=== PATIENT | male | born 1990 | race Caucasian/White ===

== ENCOUNTER 2020-07-24 19:46 | Inpatient (IN) | payer OTHER, SELFPAY ==
[2020-07-24 19:47] VITALS: BP 154/100; PULSE 91; RESP 18; TEMP 35.7; O2SAT 99; BMI 32.6
--- NOTE | 2020-07-24 20:25 | RAD_ITS ---
STUDY: X-RAY - RIGHT HAND REASON FOR EXAM: Male, 29 years old. CAT BITE TO RIGHT INDEX FINGER. SWELLING AND REDNESS TO OTHER FINGERS AND PALM OF HAND. TECHNIQUE: 3 view(s) of the hand. COMPARISON: None. FINDINGS: Normal radiocarpal articulation. Normal distal radioulnar joint. Normal visualized carpal bones. Normal carpal articulations Normal carpometacarpal articulation of the thumb. Normal second through fifth carpometacarpal joints. Normal metacarpi. No visualized fracture or displaced bony fragment. Mild diffuse soft tissue swelling is present. RAD/Hand Min 3 Views IMPRESSION: Mild soft tissue swelling Electronically Signed: Omar Alicia MD at 20:52 EST , Service support ,
[2020-07-24 20:32] LABS: Absolute Lymphocyte Count 2.16 X10^3/uL (0.83-4.51); Absolute Neutrophil Count 4.2 X10^3/uL (2.0-7.7); Basophil# 0.05 X10^3/uL; Basophil% 0.7 % (0-1); Eosinophil# 0.08 X10^3/uL; Eosinophils% 1.1 % (0-5); Hematocrit 44.7 % (40-54); Hemoglobin 15.7 g/dL (13.0-16.5); Lymphocyte # 2.16 X10^3/ul (4.0); Lymphocyte % 29.4 % (19-41); Mean Corp Hgb Conc 35.1 g/dL (32-36); Mean Corpuscular Hgb 30.1 pg (27.0-32.0); Mean Corpuscular Volume 85.8 fL (80-94); Monocyte# 0.84 X10^3/uL; Monocyte% 11.4 % (0-10); NRBC Flagged by Analyzer 0 % (0-5); Neutrophil % 57.1 % (47-70); Platelet Count 239 K/mm3 (150-450); RBC Distribution Width CV 12.2 % (11.6-14.6); Red Blood Count 5.21 M/mm3 (4.6-6.2); White Blood Count 7.4 K/mm3 (4.4-11.0)
--- NOTE | 2020-07-24 20:34 | ED.VIS.GEN ---
History of Present Illness Chief Complaint: Bite Detail of Chief Complaint: Cat bite Informant: Patient Onset: Yesterday Context: Sudden Onset Timing: Continuous Quality: Cat bite right hand Location: Involving the dorsum of the right hand and right long finger Current Severity: Moderate Maximum Severity: Moderate Worsened by: Cat bite Relieved by: Nothing Associated Symptoms: Pain with movement of his fingers and progression of redness approximately Narrative: Patient is a 29-year-old [id number] male who was seen at outside facility. He was treated with amoxicillin for cat bite. X-rays were not obtained. He states to cats unknown to him were fighting. He went to break up the Fight and was bit. He denies paresthesia, anesthesia medics. He is not diabetic. Immunizations up-to-date. He is right-hand dominant. Prior similar symptoms: Yes Recent Illness/Hospitalization: Yes - Outside facility Past Medical History - Allergies and Home Meds Allergies/Adverse Reactions: Allergies No Known Allergies Allergy (Verified 07/07/16 19:21) Primary Care Physician: Olaf Medel MD [Primary Care Provider] - Prior records reviewed: No Surgical History: no surgical history Lives: Spouse/ Significant Other Smoking Status: Never smoker Alcohol: None Drugs: None Review of Systems General: Denies: Chills, Fever, Malaise, Subjective, Sweats Eyes: Denies: Blurred Vision - bilaterally ENT: Denies: Rhinorrhea, Sore throat Cardiovascular: Denies: Chest pain, Palpitations Respiratory: Denies: Dyspnea, Cough, Dyspnea on exertion Gastrointestinal: Denies: Abdominal pain, Nausea, Vomiting Musculoskeletal: Reports: Swelling, Extremity Pain. Denies: Myalgias, Arthralgias, Neck pain, Back pain Skin: Reports: Rash, Wounds Neurological: Denies: Weakness, Parasthesia Endocrine: Denies: Polyuria, Polydipsia Hematologic: Denies: Easy bruising, Easy bleeding Allergy: Denies: Uticaria Physical Exam Vital Signs/Narrative: Vital Signs Temp Pulse Resp BP Pulse Ox 07/24/20 19:47 96.3 F L 91 18 154/100 H 99 Inital Vital Signs reviewed: Yes General: Well nourished, Well developed, Cachectic, No Acute Distress Head: Normocephalic, Atraumatic Eyes: Perrl, EOMI. Negative for: Pale conjunctiva, Scleral icterus ENT: Moist mucous membranes, No rhinorrhea Neck: Supple, Nontender, No lymphadenopathy, No JVD Cardiovascular: Regular rate, Regular rhythm, No murmurs, Normal S1, Normal S2 Respiratory: No distress, CTA bilaterally, Chest nontender Abdomen: Soft, Nontender, Nondistended, Normal bowel sounds Extremities: Tenderness, Edema. Negative for: Nontender, No edema Skin: Normal color, Rash, Trauma. Negative for: Cyanosis, Diaphoresis, Jaundice Neurological: Alert, Oriented x3, Cranial nerves II-XII grossly intact, Normal Strength, Normal Sensation Psychological: Normal affect Diagnostic/Tx/Re-eval Chest X-Ray - ED: Read by ED Physician, - - New x-ray of the right hand reveals soft tissue swelling. There is no subcutaneous air. There is no foreign body noted. The x-ray was interpreted by me. Impressions Hand X-Ray 07/24/20 20:25 IMPRESSION: Mild soft tissue swelling Electronically Signed: Omar Alicia MD at 20:52 EST , Service support , 07/24/20 20:25 Hand Min 3 Views [RAD] Stat Laboratory Results 07/24/20 07/24/20 07/24/20 20:25 20:25 20:25 WBC 7.4 RBC 5.21 Hgb 15.7 Hct 44.7 MCV 85.8 MCH 30.1 MCHC 35.1 RDW Std Deviation 38.0 RDW Coeff of Gerhard 12.2 Plt Count 239 MPV 10.0 Immature Gran % (Auto) 0.300 Neut % (Auto) 57.1 Lymph % (Auto) 29.4 Monona % (Auto) 11.4 H Eos % (Auto) 1.1 Baso % (Auto) 0.7 Absolute Neuts (auto) 4.2 Absolute Lymphs (auto) 2.16 Nucleated RBC % 0 Sodium 141 Potassium 3.5 Chloride 106 Carbon Dioxide 29.0 Anion Gap 6 BUN 16 Creatinine 1.13 Estim Creat Clear Calc 93.32 Est GFR (MDRD) Af Amer 98 Est GFR (MDRD) Non-Af 81 BUN/Creatinine Ratio 14.2 Glucose 115 H Lactic Acid 2.1 H* Calcium 9.5 He only has 1 sirs criteria. Lactate is elevated. Uncertain what this represents. Hospitalist has been paged for admission with consult to Dr. Gabriel. Voice message has been left with Dr. Gabriel regarding patient. - Medical Decision Making X-ray of the hand was obtained to evaluate for foreign body, tooth fragment. Patient has worsening cellulitis. There is concern for possible extensor tenosynovitis, extensor commonness tendon long finger. She was treated with IV Unasyn. He was made NPO. ED Disposition - Plan for ED Patient: Disposition: Acute Care Hospital [facility] Diagnosis: Infected cat bite of multiple sites of hand and fingers Referrals: Olaf Medel MD [Primary Care Provider] -
[2020-07-24 20:46] LABS: Anion Gap 6 (5-15); BUN 16 mg/dL (7-18); BUN/Creat Ratio 14.2 RATIO (10-20); Calcium,Total 9.5 mg/dL (8.5-10.1); Chloride 106 mmol/L (98-107); Creatinine, Serum 1.13 mg/dL (0.70-1.30); EST Glomerular Filtration Rate 81 mL/min (>60); Est Glom Filt Rate - Afr Amer 98 mL/min (>60); Estimated Creatinine Clearance 93.32 ml/min; Glucose 115 mg/dL (74-106); Potassium 3.5 mmol/L (3.5-5.1); Sodium Level 141 mmol/L (136-145)
[2020-07-24] MEDS: 0.9% Normal Saline 1,000 ML 150 ML IV (20:50)
[2020-07-24 21:14] LABS: Lactic Acid 2.1 mmol/L (0.4-1.9)
--- NOTE | 2020-07-24 21:38 | HP.PCM_ITS ---
History of Present Illness Date of Admission: 07/24/20 Chief Complaint: painful, swollen right hand The patient is a 29 year old M with no significant past medical history was admitted through the ED on 07/24/2020 with a complaint of swelling and pain of his right fingers, especially the right middle finger. Patient states that 2 stray cats were fighting outside his house 2 days ago so he went to separate the cats. One of the stray cat bit him on his right hand. He subsequently noted swelling and redness as well as pain of his right hand which gradually worsened. He had erythematous streaking up the dorsum of his hand and also said the puncture wound site has started discharging pus. He went to [facility] and was given p.o. Augmentin and was discharged home. However symptoms worsened and so he decided to come into the ED today. He denied any fever or chills but admitted to lethargy and some nausea. In the ED, vitals showed temperature of 91.4 Fahrenheit with blood pressure of 136/89, pulse rate of 77 respiratory rate of 18. Pulse ox was 98% on room air. Chemistry showed lactic acid of 2.1 but otherwise unremarkable. CBC showed WBC of 7.4 and was otherwise unremarkable. X-ray of the right hand showed mild soft tissue swelling. He is being admitted to be managed for cellulitis of the right hand. [] Past Medical History Allergies No Known Allergies Allergy (Verified 07/07/16 19:21) Home Medications: Ambulatory Orders Medication Instructions Recorded Magnesium Oxide 420 mg PO DAILY 07/24/20 Melatonin 07/24/20 Prazosin HCl 5 mg PO QHS 07/24/20 Sumatriptan Succinate [Imitrex] 50 mg PO .X1 PRN 07/24/20 Surgical History: no surgical history Lives: Spouse/ Significant Other Smoking Status: Never smoker Alcohol: None Drugs: None - *Family History Maternal History Items: No pertinent history Review of Systems Constitutional: Reports: Malaise, Weakness. Denies: Chills, Fever, Weight Change HEENT: Denies: Head Aches, Sinus Congestion, Sinus Drainage Cardiovascular: Denies: Chest Pain, Palpitations Respiratory: Denies: Cough, Shortness of Breath, Shortness of breath at rest, Sputum production Gastrointestinal: Denies: Abdominal Pain, Nausea, Vomiting Genitourinary: Denies: Dysuria Musculoskeletal: Reports: Hand Pain - and swelling, with discharge of pus. Denies: Arm Pain, Back Pain Skin: Reports: Skin Changes, Wounds - on right hand Neurological: Denies: Numbness, Tingling, Focal weakness Psychiatric: Denies: Anxiety, Depression, Homicidal Ideations, Suicidal Ideations Hematologic/ Lymphatic: Denies: Easy Bruising, Easy Bleeding VTE Information - Inpt Only VTE Present on Admission: No VTE Pharm Prophylaxis ordered?: Yes Patient Problems: Active and Suspected Problems Infected cat bite of multiple sites of hand and fingers (Acute) - Physical Exam Vitals/I&O's: Vital Signs Temp Pulse Resp BP Pulse Ox 96.3 F L 91 18 154/100 H 99 07/24/20 19:47 07/24/20 19:47 07/24/20 19:47 07/24/20 19:47 07/24/20 19:47 Oxygen Delivery Method Room Air Weight: 215 lb Body Mass Index (BMI) 32.6 Intake and Output for Last 24 Hours 07/22/20 07/23/20 07/24/20 23:59 23:59 23:59 Intake Total 112 / 112 Balance 112 / 112 General: Alert, Oriented x3, Cooperative, No apparent distress HEENT: Atraumatic, PERRLA, EOMI, Normocephalic Oral: Moist Mucosa Neck: Supple, No JVD, Negative Carotid Bruits Lungs: Clear to auscultation, Normal air movement, No rhonchi, No wheeze, No rales Cardiovascular: Regular rate, Regular Rhythm, Normal S1, Normal S2, No murmurs Abdomen: Bowel Sounds Present, Soft, Non Tender, Non-Distended, No Hepato- splenomegaly Extremities: No clubbing, No cyanosis, No edema, Capillary Refill Less than 3 Seconds Musculoskeletal: - - right hand swollen, especially the middle finger, erythema over dorsum of right hand; streaking cephalad. Puncture wound on dorsum of right first MCP; unable to flex right middle finger fully Neurological: Cranial nerves II-XII grossly intact, Neuro grossly intact, Motor Exam 5/5 strength throughout Psych/Mental Status: Normal Affect, Appropriate, Alert and oriented to time, place, person, mood and affect Laboratory Results 07/24/20 20:25: WBC 7.4, RBC 5.21, Hgb 15.7, Hct 44.7, MCV 85.8, MCH 30.1, MCHC 35.1, RDW Std Deviation 38.0, RDW Coeff of Gerhard 12.2, Plt Count 239, MPV 10.0, Immature Gran % (Auto) 0.300, Neut % (Auto) 57.1, Lymph % (Auto) 29.4, Haines % (Auto) 11.4 H, Eos % (Auto) 1.1, Baso % (Auto) 0.7, Absolute Neuts (auto) 4.2, Absolute Lymphs (auto) 2.16, Nucleated RBC % 0 07/24/20 20:25: Sodium 141, Potassium 3.5, Chloride 106, Carbon Dioxide 29.0, Anion Gap 6, BUN 16, Creatinine 1.13, Estim Creat Clear Calc 93.32, Est GFR (MDRD) Af Amer 98, Est GFR (MDRD) Non-Af 81, BUN/Creatinine Ratio 14.2, Glucose 115 H, Calcium 9.5 07/24/20 20:25: Lactic Acid 2.1 H* Diagnostic Data Hand X-Ray 07/24/20 20:25 IMPRESSION: Mild soft tissue swelling Electronically Signed: Omar Alicia MD at 20:52 EST , Service support , Current Medications Sodium Chloride () 1,000 mls @ 150 mls/hr IV .Q6H40M [facility] Last Admin: 07/24/20 20:50 Dose: 150 mls/hr Documented by: Assessment/Plan All Active Problems Infected cat bite of multiple sites of hand and fingers (Acute) 9-year-old admitted with a complaint of swelling and pain of his right hand after cat bite. #Cellulitis of the right hand after cat bite * failed outpatient therapy * admit to med surg * get blood cultures * start on IV unasyn * consult plastic surgery * PT/OT consult * tylenol and norco for pain * * #Lactic acidosis: lactic acid is 2.1. Hydrate with IVF and trend DVT prophylaxis: lovenox Inpatient E&M: 45233 Init Hosp L3
[2020-07-24 21:52] VITALS: BP 136/89; PULSE 77; RESP 18; TEMP 36.3; O2SAT 98
[2020-07-24 22:21] VITALS: BMI 33.9
[2020-07-24 22:40] VITALS: BP 150/98; PULSE 76; RESP 20; TEMP 36.7; O2SAT 98
[2020-07-24] MEDS: 0.9% Saline Lock 10 ML Syringe IV (23:37)
[2020-07-24] MEDS: Morphine 2 MG/ML Syringe IV (23:37)
[2020-07-25] VITALS (9 sets, daily range): BP systolic 109–157; BP diastolic 52–94; PULSE 66–84; RESP 16–18; TEMP 36.4–37.2; O2SAT 94–99; BMI 33.9
[2020-07-25 00:29] LABS: Reflex Lactate? Y
[2020-07-25] MEDS: oxyCODONE 5 MG Tablet PO ×4 (00:32→20:28)
[2020-07-25] MEDS: MELATONIN 10 MG TABLET 5 MG PO ×2 (00:33→20:28)
[2020-07-25 01:06] LABS: M R Staph aureus DNA By PCR Negative (Negative); Staph aureus DNA By PCR NEGATIVE (Negative)
[2020-07-25 01:07] LABS: Probe Check PASS; Specimen Processing Control PASS
[2020-07-25 01:38] LABS: Lactic Acid 1.2 mmol/L (0.4-1.9)
[2020-07-25] MEDS: 0.9% Normal Saline 1,000 ML 150 ML IV ×2 (05:19→15:12)
[2020-07-25 06:36] LABS: Absolute Lymphocyte Count 2.04 X10^3/uL (0.83-4.51); Absolute Neutrophil Count 3.6 X10^3/uL (2.0-7.7); Basophil# 0.04 X10^3/uL; Basophil% 0.6 % (0-1); Eosinophil# 0.05 X10^3/uL; Eosinophils% 0.8 % (0-5); Hematocrit 39.7 % (40-54); Hemoglobin 13.6 g/dL (13.0-16.5); Lymphocyte # 2.04 X10^3/ul (4.0); Lymphocyte % 30.8 % (19-41); Mean Corp Hgb Conc 34.3 g/dL (32-36); Mean Corpuscular Hgb 29.6 pg (27.0-32.0); Mean Corpuscular Volume 86.5 fL (80-94); Mean Platelet Vol. 9.9 fl (6.2-12.0); Monocyte# 0.84 X10^3/uL; Monocyte% 12.7 % (0-10); NRBC Flagged by Analyzer 0 % (0-5); Neutrophil # 3.62 X10^3/uL (2.7-7.7); Neutrophil % 54.6 % (47-70); Platelet Count 218 K/mm3 (150-450); RBC Distribution Width CV 12.4 % (11.6-14.6); RBC Distribution Width SD 38.7 fl (35.1-43.9); Red Blood Count 4.59 M/mm3 (4.6-6.2); White Blood Count 6.6 K/mm3 (4.4-11.0)
[2020-07-25 07:03] LABS: Anion Gap 5 (5-15); BUN 13 mg/dL (7-18); BUN/Creat Ratio 14.1 RATIO (10-20); Calcium,Total 8.5 mg/dL (8.5-10.1); Chloride 112 mmol/L (98-107); Creatinine, Serum 0.92 mg/dL (0.70-1.30); EST Glomerular Filtration Rate 103 mL/min (>60); Est Glom Filt Rate - Afr Amer 125 mL/min (>60); Estimated Creatinine Clearance 114.62 ml/min; Glucose 87 mg/dL (74-106); Potassium 3.9 mmol/L (3.5-5.1); Sodium Level 143 mmol/L (136-145)
--- NOTE | 2020-07-25 09:02 | PCM.CONS.GEN ---
Reason for Consult Date of Consultation: 07/25/20 Reason for Consultation: Cat bite infection dorsum right hand and long finger. REFERRING PHYSICIAN: Dr. Mora. ICT PROJECT MANAGER: Dr. Gabriel. History of Present Illness: The patient is a 29 year old M presented to the ED yesterday with increasing pain and redness and swelling right hand from a feral cat bite a few days ago. He was placed on Augmentin and the symptomatology worsened. He was admitted to the hospital after failing outpatient therapy. He was started on Unasyn. WBC was 7.4. Lactate was 2.1. X-ray of the right hand showed soft tissue swelling. There was no fracture and no foreign body seen. He states most of his pain involves the long finger and the dorsum right hand. I was asked to evaluate this patient for surgical options for treatment. Past Medical History Allergies No Known Allergies Allergy (Verified 07/07/16 19:21) Home Medications: Ambulatory Orders Medication Instructions Recorded Magnesium Oxide 420 mg PO DAILY 07/24/20 Melatonin 5 mg PO QHS PRN PRN 07/24/20 Prazosin HCl 5 mg PO QHS 07/24/20 Sumatriptan Succinate [Imitrex] 50 mg PO .X1 PRN 07/24/20 Surgical History: no surgical history Lives: Spouse/ Significant Other Smoking Status: Never smoker Alcohol: None Drugs: None - *Family History Maternal History Items: No pertinent history Review of Systems Comment: Constitutional: Reports: Malaise, Weakness. Denies: Chills, Fever, Weight Change. HEENT: Denies: Head Aches, Sinus Congestion, Sinus Drainage. Cardiovascular: Denies: Chest Pain, Palpitations. Respiratory: Denies: Cough, Shortness of Breath, Shortness of breath at rest, Sputum production. Gastrointestinal: Denies: Abdominal Pain, Nausea, Vomiting. Genitourinary: Denies: Dysuria. Musculoskeletal: Reports: Hand Pain - and swelling, with discharge of pus. Denies: Arm Pain, Back Pain. Skin: Reports: Skin Changes, Wounds - on right hand. Neurological: Denies: Numbness, Tingling, Focal weakness. Psychiatric: Denies: Anxiety, Depression, Homicidal Ideations, Suicidal Ideations. Hematologic/ Lymphatic: Denies: Easy Bruising, Easy Bleeding Patient Problems: Active and Suspected Problems Infected cat bite of multiple sites of hand and fingers (Acute) - Physical Exam Vitals/I&O's: General: Alert, Oriented x3. HEENT: PERRLA, EOMI. Oral: Moist Mucosa. Neck: Supple, Nontender. No cervical adenopathy. Lungs: Clear to auscultation. Cardiovascular: Regular rate, Regular Rhythm. Abdomen: Soft, Non-Distended. Extremities: No clubbing, No cyanosis. Moderate edema dorsum right hand and right long finger. Erythema over dorsum of right hand and right long finger. Fluctuance noted on dorsum Cat bite wounds noted on dorsum right hand and on dorsal ulnar aspect proximal phalanx and dorsal aspect PIP joint right long finger. Long finger is flexed. Some tenderness with passive extension. Mild tenderness on index finger and ring finger. Wrist is nontender. Neurological: Cranial nerves II-XII grossly intact. Psych/Mental Status: Normal Affect, Appropriate. Vital Signs Temp Pulse Resp BP Pulse Ox 98.3 F 67 18 109/61 95 07/25/20 04:45 07/25/20 04:45 07/25/20 04:45 07/25/20 04:45 07/25/20 04:45 Oxygen Delivery Method Room Air Weight: 223 lb 1.725 oz Body Mass Index (BMI) 33.9 Intake and Output for Last 24 Hours 07/23/20 07/24/20 07/25/20 23:59 23:59 23:59 Intake Total 112 / 232 1544 / 1544 Output Total 0 / 0 Balance 112 / 232 1544 / 1544 Laboratory Results 07/24/20 20:25: WBC 7.4, RBC 5.21, Hgb 15.7, Hct 44.7, MCV 85.8, MCH 30.1, MCHC 35.1, RDW Std Deviation 38.0, RDW Coeff of Gerhard 12.2, Plt Count 239, MPV 10.0, Immature Gran % (Auto) 0.300, Neut % (Auto) 57.1, Lymph % (Auto) 29.4, Lanier % (Auto) 11.4 H, Eos % (Auto) 1.1, Baso % (Auto) 0.7, Absolute Neuts (auto) 4.2, Absolute Lymphs (auto) 2.16, Nucleated RBC % 0 07/24/20 20:25: Sodium 141, Potassium 3.5, Chloride 106, Carbon Dioxide 29.0, Anion Gap 6, BUN 16, Creatinine 1.13, Estim Creat Clear Calc 93.32, Est GFR (MDRD) Af Amer 98, Est GFR (MDRD) Non-Af 81, BUN/Creatinine Ratio 14.2, Glucose 115 H, Calcium 9.5 07/24/20 20:25: Lactic Acid 2.1 H* 07/24/20 23:45: S.aureus Protein A PCR NEGATIVE, MRSA (PCR) Negative 07/25/20 01:05: Lactic Acid 1.2 07/25/20 06:15: WBC 6.6, RBC 4.59 L, Hgb 13.6, Hct 39.7 L, MCV 86.5, MCH 29.6, MCHC 34.3, RDW Std Deviation 38.7, RDW Coeff of Gerhard 12.4, Plt Count 218, MPV 9.9, Immature Gran % (Auto) 0.500, Neut % (Auto) 54.6, Lymph % (Auto) 30.8, Lanier % (Auto) 12.7 H, Eos % (Auto) 0.8, Baso % (Auto) 0.6, Absolute Neuts (auto) 3.6, Absolute Lymphs (auto) 2.04, Nucleated RBC % 0 07/25/20 06:15: Sodium 143, Potassium 3.9, Chloride 112 H, Carbon Dioxide 26.0, Anion Gap 5, BUN 13, Creatinine 0.92, Estim Creat Clear Calc 114.62, Est GFR (MDRD) Af Amer 125, Est GFR (MDRD) Non-Af 103, BUN/Creatinine Ratio 14.1, Glucose 87, Calcium 8.5 Diagnostic Data Hand X-Ray 07/24/20 20:25 IMPRESSION: Mild soft tissue swelling Electronically Signed: Omar Alicia MD at 20:52 EST , Service support , Current Medications Acetaminophen (Acetaminophen 325 Mg Tablet) 650 mg PO Q6H PRN PRN PRN Reason: Pain Score 1-10/Temp > 100.7 F Doxazosin Mesylate (Doxazosin 4 Mg Tablet) 4 mg PO QHS [place] Enoxaparin Sodium (Enoxaparin 40 Mg/0.4 Ml Syringe) 40 mg SC DAILY [facility] Sodium Chloride () 1,000 mls @ 150 mls/hr IV .Q6H40M [facility] Last Admin: 07/25/20 05:19 Dose: 150 mls/hr Documented by: Ampicillin Sodium/Sulbactam (Sodium 3 gm/ Sodium Chloride) 112 mls @ 150 mls/hr IV Q6 [facility] Last Infusion: 07/25/20 06:48 Dose: Infused Documented by: Magnesium Chloride (Magnesium Chloride 64 Mg Delay Rel.Tablet) 128 mg PO DAILY [facility] Melatonin (Melatonin 10 Mg Tablet) 5 mg PO QHS PRN PRN PRN Reason: SLEEP Last Admin: 07/25/20 00:33 Dose: 5 mg Documented by: Morphine Sulfate (Morphine 2 Mg/Ml Syringe) 2 mg IV Q3H PRN PRN PRN Reason: Pain Score 6-10 Last Admin: 07/24/20 23:37 Dose: 2 mg Documented by: Nitroglycerin (Nitroglycerin (Inpatient Use) 0.4 Mg Tab.Subl) 0.4 mg SUBLINGUAL Q5M PRN PRN Reason: CARDIAC/CHEST PAIN Ondansetron HCl (Ondansetron 4 Mg/2 Ml Vial) 4 mg IV Q8H PRN PRN PRN Reason: NAUSEA/VOMITING Oxycodone HCl (Oxycodone 5 Mg Tablet) 5 mg PO Q4H PRN PRN PRN Reason: Pain Score 4-5 Last Admin: 07/25/20 05:23 Dose: 5 mg Documented by: Rizatriptan Benzoate (Rizatriptan Benzoate 10 Mg Tablet) 50 mg PO .X1 PRN [facility] Sodium Chloride (0.9% Saline Lock 10 Ml Syringe) 10 - 40 ml IV UD PRN PRN Reason: SALINE FLUSH Last Admin: 07/24/20 23:37 Dose: 10 ml Documented by: Assessment/Plan All Active Problems Tenosynovitis of right hand (Acute) Cat bite of right hand including fingers with infection (Acute) Cat bite (Acute) Infected cat bite of multiple sites of hand and fingers (Acute) 1. Cat bite infection dorsum right hand and right long finger. 2. Tenosynovitis right hand. X-ray reviewed. No fracture seen. No foreign body seen. Patient sustained cat bite to dorsum right hand and right long finger a few days ago. They were feral cats. He failed outpatient therapy with Augmentin. Upon admission to the hospital, his WBC was 7.4. The Lactate was 2.1. He was started on Unasyn. He has tenderness over the cat bite wounds and evidence of tenosynovitis. Recommend operative intervention with incision and drainage and excisional debridement of this cat bite infection dorsum right hand and right long finger. It needs to be done urgently today because of the risk of spread of the infection to other fingers of the hand and to the interosseous muscles. Will leave the wounds open and begin postoperative wound care with Silver dressing changes daily. Anticipate stiffness and will encourage range of motion exercises to minimize stiffness after surgery. If necessary, he may need evaluation by OT for range of motion exercises, strengthening, and edema management. Will send tissue to Pathology for analysis to rule out carcinoma and to Microbiology for culture. A positive culture will necessitate antibiotic therapy. If there is a plateau in the healing process, can proceed with delayed closure with skin grafting. Patient was informed of the risks and complications of the procedure including alternatives to surgery. These were discussed with the patient personally. Patient voices understanding and wishes to proceed. Some of the risks and complications that were discussed included but were not inclusive of failure to diagnose including symptom relief, pain, infection, numbness, stiffness, loss of digit, RSD (CRPS), need for further surgery, contracture, and wound healing problems. Patient understands that the wounds would be left open after the surgery. He voices understanding and wishes to proceed. We discussed the current risks associated with COVID-19. While it is understood that there is a community spread of COVID-19, the risk of edna COVID-19 while at [facility] ([facility]) is very low; however, the risk cannot be completely mitigated because of the community spread of the disease. We discussed in detail the risk of exposure to and/or potential harm posed by the COVID-19 virus with having a surgery/procedure at this time versus the risk of delaying the surgery/procedure. It is not possible to know either the risk of delaying the surgery or procedure or chance of getting an infection with perfect accuracy, but a joint decision was made to proceed at this time with the scheduled surgery/procedure as indicated on the consent form. Patient was notified that we will need to comply with any screening or testing [facility] wishes to perform or that surgery may be delayed for any positive results. Discussed with the patient that I was tested for COVID-19 on 12/15/19 which was negative and on 12/29/19 which was negative and on 01/12/20 which was negative and on 01/26/20 which was negative and on 02/09/20 which was negative and on 03/01/20 which was negative and on 03/22/20 which was negative and on 04/26/20 which was negative and on 05/17/20 which was negative and on 06/05/20 which was negative. My testing regimen at this time is to be COVID-19 tested every 2 weeks or so. I received the COVID-19 vaccine (Moderna) on 06/13/20 and the second vaccine dose was received on 07/11/20. Procedure Criteria Procedure Type: Elective COVID Risk Discussion: The surgeon/proceduralist and patient have discussed in detail the risk of exposure to and/or potential harm posed by the COVID-19 virus with having a surgery/procedure at this time versus the risk of delaying the surgery/procedure. It is not possible to know either the risk of delaying the surgery or procedure or chance of getting an infection with perfect accuracy, but a joint decision was made between the patient and the surgeon/proceduralist to proceed at this time with the scheduled surgery/procedure as indicated on the consent form. Inpatient E&M: 63548 Init Hosp L3 - -57 Modifier ICD-10 - W55.01xA, S61.451A, M65.9
--- NOTE | 2020-07-25 11:25 | CASEMGMT ---
RN RON Face to Face with patient for initial transition planning/care coordination assessment. RN CM introduced self and role at [facility]. Patient lying in bed, alert and oriented, at bedside. Patient willing to participate in assessment and is able to answer all questions appropriately. Care providers, pharmacy, and demographics verified. Patient wishes to discharge home, denies need for home health at this time. Patient states he has no further needs or concerns at this time. CM to follow for discharge planning needs that may arise. PCP: Gianfranco Specialists: none Preferred Pharmacy: [facility] Insurance: [employer] Prescription Benefit: yes Living Will/HPOA: none LNOK: Living Arrangements: Patient lives with in a 2 story home with bed and bath on the first floor. Patient states he is independent at home. Transportation: self/ DME/HHC: Patient has cpap at home. Patient denies previous HHC. states she is willing to learn wound care while patient is at hospital for at home. Disposition Plan: Patient to discharge home with family support and follow-up plans in place. Susan GARCIA, RN, CM
--- NOTE | 2020-07-25 11:48 | PCM.PROGNOTE ---
Patient Problems: Active and Suspected Problems Infected cat bite of multiple sites of hand and fingers (Acute) Subjective: Patient was seen and examined today, I talked briefly with plastic surgery about his care, he will go to surgery today for incision and drainage of his right hand wound. Patient states that he is primarily right-handed but also is able to use his left hand with multiple tasks. Any significant medical issues chronically. - Physical Exam Vitals/I&O's: Vital Signs Temp Pulse Resp BP Pulse Ox 97.9 F 74 18 138/84 H 98 07/25/20 09:30 07/25/20 09:30 07/25/20 09:30 07/25/20 09:30 07/25/20 09:30 Oxygen Delivery Method Room Air Weight: 101.2 kg Body Mass Index (BMI) 33.9 Intake and Output for Last 24 Hours 07/23/20 07/24/20 07/25/20 23:59 23:59 23:59 Intake Total 112 / 232 1544 / 1544 Output Total 0 / 0 Balance 112 / 232 1544 / 1544 General: Alert, Oriented x3, Cooperative, No apparent distress, Well developed, Well nourished HEENT: Atraumatic, PERRLA, EOMI, Normocephalic Oral: Moist Mucosa Neck: Supple, No JVD, Trachea Midline, Thyroid Normal Size and Texture Lungs: Clear to auscultation, Normal air movement, No rhonchi, No wheeze, No rales Cardiovascular: Regular rate, Regular Rhythm, Normal S1, Normal S2, No murmurs, PMI Normal, No rub noted, No Gallop Abdomen: Bowel Sounds Present, Soft, Non Tender, Non-Distended, No hernias noted Extremities: No clubbing, No cyanosis, Capillary Refill Less than 3 Seconds, Edema - There is generalized edema and some redness of the dorsal aspect of the right hand, Tenderness - There is tenderness over the dorsal aspect of the right hand to palpation, patient is unable to make a full fist with the right hand or straighten out the right hand completely Skin: - - There is erythematous changes over the dorsum of the right hand noted along with swelling noted over the area Musculoskeletal: Tenderness - There is tenderness to palpation of the dorsum of the right hand Neurological: Cranial nerves II-XII grossly intact, Neuro grossly intact, Sensory exam intact to light touch and pain, Coordination normal Psych/Mental Status: Normal Affect, Appropriate, Alert and oriented to time, place, person, mood and affect Microbiology Past 72 Hours 07/24/20 23:45 Wound - Hand Gram Stain - Final Laboratory Results 07/24/20 20:25: WBC 7.4, RBC 5.21, Hgb 15.7, Hct 44.7, MCV 85.8, MCH 30.1, MCHC 35.1, RDW Std Deviation 38.0, RDW Coeff of Gerhard 12.2, Plt Count 239, MPV 10.0, Immature Gran % (Auto) 0.300, Neut % (Auto) 57.1, Lymph % (Auto) 29.4, [place] % (Auto) 11.4 H, Eos % (Auto) 1.1, Baso % (Auto) 0.7, Absolute Neuts (auto) 4.2, Absolute Lymphs (auto) 2.16, Nucleated RBC % 0 07/24/20 20:25: Sodium 141, Potassium 3.5, Chloride 106, Carbon Dioxide 29.0, Anion Gap 6, BUN 16, Creatinine 1.13, Estim Creat Clear Calc 93.32, Est GFR (MDRD) Af Amer 98, Est GFR (MDRD) Non-Af 81, BUN/Creatinine Ratio 14.2, Glucose 115 H, Calcium 9.5 07/24/20 20:25: Lactic Acid 2.1 H* 07/24/20 23:45: S.aureus Protein A PCR NEGATIVE, MRSA (PCR) Negative 07/25/20 01:05: Lactic Acid 1.2 07/25/20 06:15: WBC 6.6, RBC 4.59 L, Hgb 13.6, Hct 39.7 L, MCV 86.5, MCH 29.6, MCHC 34.3, RDW Std Deviation 38.7, RDW Coeff of Gerhard 12.4, Plt Count 218, MPV 9.9, Immature Gran % (Auto) 0.500, Neut % (Auto) 54.6, Lymph % (Auto) 30.8, [place] % (Auto) 12.7 H, Eos % (Auto) 0.8, Baso % (Auto) 0.6, Absolute Neuts (auto) 3.6, Absolute Lymphs (auto) 2.04, Nucleated RBC % 0 07/25/20 06:15: Sodium 143, Potassium 3.9, Chloride 112 H, Carbon Dioxide 26.0, Anion Gap 5, BUN 13, Creatinine 0.92, Estim Creat Clear Calc 114.62, Est GFR (MDRD) Af Amer 125, Est GFR (MDRD) Non-Af 103, BUN/Creatinine Ratio 14.1, Glucose 87, Calcium 8.5 Current Medications Acetaminophen (Acetaminophen 325 Mg Tablet) 650 mg PO Q6H PRN PRN PRN Reason: Pain Score 1-10/Temp > 100.7 F Doxazosin Mesylate (Doxazosin 4 Mg Tablet) 4 mg PO QHS [facility] Enoxaparin Sodium (Enoxaparin 40 Mg/0.4 Ml Syringe) 40 mg SC DAILY [facility] Last Admin: 07/25/20 09:33 Dose: Not Given Documented by: Sodium Chloride () 1,000 mls @ 150 mls/hr IV .Q6H40M [facility] Last Admin: 07/25/20 05:19 Dose: 150 mls/hr Documented by: Ampicillin Sodium/Sulbactam (Sodium 3 gm/ Sodium Chloride) 112 mls @ 150 mls/hr IV Q6 [facility] Last Infusion: 07/25/20 06:48 Dose: Infused Documented by: Magnesium Chloride (Magnesium Chloride 64 Mg Delay Rel.Tablet) 128 mg PO DAILY [facility] Last Admin: 07/25/20 10:34 Dose: Not Given Documented by: Melatonin (Melatonin 10 Mg Tablet) 5 mg PO QHS PRN PRN PRN Reason: SLEEP Last Admin: 07/25/20 00:33 Dose: 5 mg Documented by: Morphine Sulfate (Morphine 2 Mg/Ml Syringe) 2 mg IV Q3H PRN PRN PRN Reason: Pain Score 6-10 Last Admin: 07/24/20 23:37 Dose: 2 mg Documented by: Nitroglycerin (Nitroglycerin (Inpatient Use) 0.4 Mg Tab.Subl) 0.4 mg SUBLINGUAL Q5M PRN PRN Reason: CARDIAC/CHEST PAIN Ondansetron HCl (Ondansetron 4 Mg/2 Ml Vial) 4 mg IV Q8H PRN PRN PRN Reason: NAUSEA/VOMITING Oxycodone HCl (Oxycodone 5 Mg Tablet) 5 mg PO Q4H PRN PRN PRN Reason: Pain Score 4-5 Last Admin: 07/25/20 05:23 Dose: 5 mg Documented by: Rizatriptan Benzoate (Rizatriptan Benzoate 10 Mg Tablet) 50 mg PO .X1 PRN LUDWIN Sodium Chloride (0.9% Saline Lock 10 Ml Syringe) 10 - 40 ml IV UD PRN PRN Reason: SALINE FLUSH Last Admin: 07/24/20 23:37 Dose: 10 ml Documented by: Medical Necessity - Tobacco Use Smoking Status: Never smoker Assessment/Plan All Active Problems Infected cat bite of multiple sites of hand and fingers (Acute) #1 deep wound infection of the right hand-continue present antibiotic coverage, patient will go to surgery today for incision and drainage Inpatient E&M: [id number] [facility] H[facility] L2
[2020-07-25] MEDS: Lactated Ringers 1,000 ML 100 ML IV (12:15)
--- NOTE | 2020-07-25 13:00 | LES_PTH ---
PATIENT: AYAKA CASTREJON LOC: MS3 U#:[id number] AGE/SX: 29/M ROOM: MS305 RE07/24/[address]: Dr. Eduard Hurst DO : 1990 BED: 1 DIS: 07/27/2020 SPEC #: [id number] RECD: 07/26/20 07:36 STATUS: PATRICIA REQ #: [id number] BRANDI: 07/25/20 13:[address]: Art Gabriel DEPT: SURGICAL PATHOLOGY RECD BY: Eloina Solano ENTERED: 07/26/20 08:45 SP TYPE: Lesion OTHR DR: MD Dr. Eduard Osborne DO Dr. Nana Yaa Koram, MD Dr. Scott Brown, MD Tissues: Skin of finger, NOS Procedures: Special Stain Group I Surgery Specimen Level III AFB Stain (control) GMS Stain (control) Comments: @ Ordering doctor for SUIV edited from to @ by NARCISO at 07/26/20 1251 @ Submitting doctor edited from to @ by ANAMOD at 07/26/20 1251 HEADER OPERATION: I & D, cat bite long finger right hand PRE-OP DIAGNOSIS: Cellulitis of right hand after cat bite TISSUE SUBMITTED: Cat bite infection dorsum right hand and long finger MICROSCOPIC DIAGNOSIS Cat bite infection dorsum right hand and long finger: Pieces of skin with underlying tissue with focal ulceration, acute and chronic inflammation and abscess formation. See comment. SJ:mliton 07/27/2020 COMMENT Special stains for acid fast bacilli and fungi are negative for organisms; matched controls are appropriate. MICROSCOPIC DESCRIPTION Slides are reviewed. GROSS DESCRIPTION Received in fixative is one container labeled with the patient's name and designated cat bite infection dorsum right hand and long finger. The specimen consists of a piece of skin with underlying tissue measuring 1.2 x 1 cm and up to 0.5 cm in thickness. The specimen is inked, serially sectioned and submitted entirely in one cassette. / PILAR:milton 07/26/20 TC:2 CPT: 29105, 79131 x2
[2020-07-25] MEDS: Lidocaine 1% (20 ml mdv) 20 ML Vial (14:01)
--- NOTE | 2020-07-25 14:11 | OP.PCM_ITS ---
Report of Operation Date of Procedure: 07/25/20 Pre-Operative Diagnosis: 1. Cat bite infection dorsum right hand and right long finger. 2. Tenosynovitis right hand. Post-Operative Diagnosis: 1. Cat bite infection dorsum right hand and right long finger. 2. Tenosynovitis right hand. 3. Partial extensor tendon injury right long finger between radial lateral band and central tendon near PIP joint (zone 4). Surgery/Procedure Performed:: 1. Surgical preparation dorsum right hand with incision and drainage and excisional debridement cat bite infection. 2. Surgical preparation dorsal ulnar aspect proximal phalanx right long finger with incision and drainage and excisional debridement cat bite infection. 3. PIP joint extension splint for partial extensor tendon injury right long finger between radial lateral band and central tendon near PIP joint (zone 4). Description of Surgical Findings:: The patient is a 29 year old M presented to the ED yesterday with increasing pain and redness and swelling right hand from a feral cat bite a few days ago. He was placed on Augmentin and the symptomatology worsened. He was admitted to the hospital after failing outpatient therapy. He was started on Unasyn. WBC was 7.4. Lactate was 2.1. X-ray of the right hand showed soft tissue swelling. There was no fracture and no foreign body seen. He states most of his pain involves the long finger and the dorsum right hand. I was asked to evaluate this patient for surgical options for treatment. Patient was informed of the risks and complications of the procedure including alternatives to surgery. These were discussed with the patient personally. Patient voices understanding and wishes to proceed. Some of the risks and complications that were discussed included but were not inclusive of failure to diagnose including symptom relief, pain, infection, numbness, stiffness, loss of digit, RSD (CRPS), need for further surgery, contracture, and wound healing problems. Total tourniquet time - 29 minutes. Size of defect dorsal ulnar aspect right long finger - 1 x 1 cm. Length of zig zag incisions proximal to the cat bite wound - 4 cm. Length of zig zag incisions distal to the cat bite wound - 3 cm. building maintenance mechanic: None Type of Anesthesia:: General Specimen's removed: Cat bite infection dorsum right hand and right long finger to Pathology and Microbiology. Drains: None. Estimated Blood Loss (mL): 5 ml. Description of Procedure: Patient was taken to OR in supine position and was placed under general anesthesia. The right hand was prepped and draped in the usual fashion. A tourniquet was placed on right arm. SCD's were placed for DVT prophylaxis. Per ioperative antibiotics were given intravenously. Using xylocaine with epinephrine, digital metacarpal block was administered for postoperative pain relief. The right upper extremity was elevated and a towel was wrapped around the right hand as the tourniquet was elevated to 250 mmHg. I didn't use the Esmarch bandage because of the presence of infection. Under loupe magnification, I proceeded with an incision around the cat bite wound dorsal ulnar aspect proximal phalanx right long finger down into the subcutaneous tissue. No pus was seen. There was a lot of inflammatory exudate and extensive fat necrosis. I excised and debrided the areas of fat necrosis and the exudate. The depth of the cat bite wound did not extend deep enough onto the volar surface of the finger. The flexor tendons were not visualized from the wound as there was viable soft tissue present at the base of the wound. I extended the incisions in a zig zag fashion both proximally and distally. The distal zag was incorporated into the cat bite wound at the PIP joint. Skin flaps were elevated at the level of the extensor tendon. There was a small rent in the extensor tendon from the cat bite injury located between the radial lateral band and the central tendon near the PIP joint (zone 4). I dissected deep to the tendon down to the proximal phalanx bone. It did not appear the cat bite injured the bone. The PIP joint was not involved. The tendon was a little swollen. The tendon appeared stable so I refrained from putting sutures into the small wound in the tendon complex because it was an infected wound. Will allow the tendon to heal over the next several weeks by placing a PIP extension splint using Alumafoam. Some of the tissue that was excised and debrided was sent to Pathology for jacob lysis to rule out carcinoma and to Microbiology for culture. A positive culture will necessitate antibiotic therapy. The tourniquet was released after 29 minutes. Hemostasis was obtained with gentle pressure and electrocautery. I closed the zigs and zags to make the wound care easier with 4-0 Nylon vertical mattress and simple interrupted sutures. The size of the cat bite wound on the dorsal ulnar aspect proximal phalanx right long finger was 1 x 1 cm. The length of the zigzags distally was 3 cm and proximally was 4 cm. Since there was fluctuance on the dorsum of the hand, I extended the zig zag incisions proximally onto the dorsum of the hand. There appeared to be no involvement of the tendons on the dorsum of the hand, just a lot of fat necrosis and inflammatory exudate. No pus was seen. The tenosynovitis was inflammatory and not suppurative. I then dressed the wounds with 4x4 gauze and Betadine followed by 4x4 gauze and a 2 inch Gretchen wrap to secure the PIP extension splint. I then further wrapped the hand with a dry Kerlix gauze and a compression zeina wrap. Patient tolerated the procedure well and was sent to PACU in satisfactory condition. Patient will be sent upstairs for continued postop care. Will redress the wounds tomorrow with Silver dressing changes. Will encourage range of motion exercises to minimize stiffness. If stiffness develops, will set him up with OT for range of motion exercises, strengthening, and edema management. Grafts/Implants Used: None. - Complications None. - Admit VTE Documentation VTE Present on Admission: No VTE Mechan Device Prophylaxis: SCD's VTE Pharm Prophylaxis ordered?: No Surgery Charges CPT - 11168 ICD-10 - W55.01xA, S61.451A, M65.9, S66.392A 48115 W55.01xA, S61.451A, M65.9, S66.392A
[2020-07-25] MEDS: Acetaminophen 325 MG Tablet 650 MG PO (15:23)
--- NOTE | 2020-07-25 17:05 | CHAPLAIN ---
Type of Pastoral Visit _x__ Initial Visit ___ Follow-up Visit ___ On-call Visit ___ General Patient Visit ___ Spiritual Assessment ___ Family Conference ___ Bereavement ___ Rapid Response ___ Code Blue ___ Other (describe below) Pastoral Care Referral From _x__ Patient ___ Family ___ Nurse ___ Physician ___ Power Cleaner Operator ___ Die Inspector ___ Other (describe below) Sacrament/Intervention _x__ Active listening ___ Anointing ___ Judaism ___ Bereavement ___ Communion _x__ Toña exploration ___ _x__ Life review _x__ Prayer ___ Reconciliation ___ Sacrament of Sick _x__ Supportive presence ___ Wedding ___ Other (describe below) Pastoral Comments patient was just returned from procedure right before this visit; pt is alert and welcoming; pt gives current information about health and his review of life and family life; pt is active in his toña and zoroastrian; pt is seeking time for support and prayer about direction for his life and calling;
[2020-07-25] MEDS: Morphine 2 MG/ML Syringe IV (17:34)
[2020-07-25] MEDS: Doxazosin 4 MG Tablet PO (22:39)
[2020-07-26] MEDS: oxyCODONE 5 MG Tablet PO ×5 (00:34→17:49)
[2020-07-26 05:06] VITALS: BP 131/70; PULSE 74; RESP 18; TEMP 36.8; O2SAT 93
[2020-07-26] MEDS: Acetaminophen 325 MG Tablet 650 MG PO ×3 (05:41→17:50)
[2020-07-26 05:52] LABS: Hematocrit 39.1 % (40-54); Hemoglobin 13.5 g/dL (13.0-16.5); Mean Corp Hgb Conc 34.5 g/dL (32-36); Mean Corpuscular Hgb 29.3 pg (27.0-32.0); Mean Platelet Vol. 9.9 fl (6.2-12.0); Platelet Count 239 K/mm3 (150-450); RBC Distribution Width CV 11.9 % (11.6-14.6); RBC Distribution Width SD 36.4 fl (35.1-43.9); White Blood Count 13.7 K/mm3 (4.4-11.0)
[2020-07-26 06:00] LABS: Erythrocyte Sedimentation Rate 13 mm/hr (0-20)
[2020-07-26 06:27] LABS: ALB/GLOB Ratio 1.1 RATIO (0.9-2.4); AST(SGOT) 18 U/L (15-37); Alanine Aminotransfer ALT/SGPT 42 U/L (16-61); Albumin, Serum 3.3 g/dL (3.2-5.0); Alkaline Phosphatase 98 U/L (45-117); Anion Gap 6 (5-15); BUN 15 mg/dL (7-18); BUN/Creat Ratio 17.6 RATIO (10-20); Calcium,Total 8.8 mg/dL (8.5-10.1); Chloride 108 mmol/L (98-107); Creatinine, Serum 0.85 mg/dL (0.70-1.30); EST Glomerular Filtration Rate 112 mL/min (>60); Est Glom Filt Rate - Afr Amer 136 mL/min (>60); Estimated Creatinine Clearance 124.06 ml/min; Globulin 3.1 g/dL (2.2-4.2); Glucose 115 mg/dL (74-106); Potassium 4.5 mmol/L (3.5-5.1); Prealbumin 17.9 mg/dL (20.0-40.0); Protein, Total 6.4 g/dL (6.4-8.2); Sodium Level 138 mmol/L (136-145)
[2020-07-26 08:00] VITALS: BP 127/59; PULSE 75; RESP 16; TEMP 36.4
[2020-07-26] MEDS: Magnesium Chloride 64 MG Delay Rel.Tablet 128 MG PO (09:35)
[2020-07-26] MEDS: Enoxaparin 40 MG/0.4 ML Syringe SC (09:36)
[2020-07-26] MEDS: Morphine 2 MG/ML Syringe IV ×3 (10:53→21:16)
[2020-07-26 11:00] VITALS: BP 122/54; PULSE 75; RESP 18; TEMP 36.4; O2SAT 95
--- NOTE | 2020-07-26 11:27 | NURSING ---
wound photo: right hand/long finger
--- NOTE | 2020-07-26 13:20 | PCM.PN.SRG ---
Patient Problems: Active and Suspected Problems Infected cat bite of multiple sites of hand and fingers (Acute) Subjective: Postop #1 Resting in bed. Complaining of right hand pain. - Physical Exam Vitals/I&O's: Vital Signs Temp Pulse Resp BP Pulse Ox 98.4 F 82 14 124/62 H 99 07/26/20 15:47 07/26/20 15:47 07/26/20 15:47 07/26/20 15:47 07/26/20 15:47 Oxygen Flow Rate (L/min) 2 Oxygen Delivery Method Room Air Weight: 223 lb 1.725 oz Body Mass Index (BMI) 33.9 Intake and Output for Last 24 Hours 07/24/20 07/25/20 07/26/20 23:59 23:59 23:59 Intake Total 112 / 232 5208.83 / 5208.83 1198.5 / 1198.5 Output Total 0 / 0 Balance 112 / 232 5208.83 / 5208.83 1198.5 / 1198.5 General: Alert, Oriented x3, Cooperative HEENT: Atraumatic Oral: Moist Mucosa Lungs: Normal air movement Cardiovascular: Regular rate Extremities: Capillary Refill Less than 3 Seconds, Edema Skin: Ulcer/ Wound - Right dorsal long finger and hand wound is stable with no active bleeding. Redness and swelling resolving. Very sensitive to light touch. Able to move all fingers but the long finger is splinted. Dressing intact. SURAJ wrap for compression. Musculoskeletal: Tenderness Neurological: Cranial nerves II-XII grossly intact Psych/Mental Status: Normal Affect, Appropriate Microbiology Past 72 Hours 07/25/20 Unknown Tissue - Hand Gram Stain - Final 07/24/20 23:45 Wound - Hand Gram Stain - Final 07/24/20 23:45 Wound - Hand Wound Culture - Preliminary Coag Negative Staph 07/25/20 12:04 Mucosa - Nose SARS-CoV-2 Antigen (Rapid) - Final Laboratory Results 07/26/20 05:34: WBC 13.7 H, RBC 4.60, Hgb 13.5, Hct 39.1 L, MCV 85.0, MCH 29.3, MCHC 34.5, RDW Std Deviation 36.4, RDW Coeff of Gerhard 11.9, Plt Count 239, MPV 9.9, ESR 13 07/26/20 05:34: Sodium 138, Potassium 4.5, Chloride 108 H, Carbon Dioxide 24.0, Anion Gap 6, BUN 15, Creatinine 0.85, Estim Creat Clear Calc 124.06, Est GFR (MDRD) Af Amer 136, Est GFR (MDRD) Non-Af 112, BUN/Creatinine Ratio 17.6, Glucose 115 H, Calcium 8.8, Total Bilirubin 0.40, AST 18, ALT 42, Alkaline Phosphatase 98, C-React Prot Ext Range 17.40 H, Total Protein 6.4, Albumin 3.3, Globulin 3.1, Albumin/Globulin Ratio 1.1, Prealbumin 17.9 L Current Medications Acetaminophen (Acetaminophen 325 Mg Tablet) 650 mg PO Q6H PRN PRN PRN Reason: Pain Score 1-10/Temp > 100.7 F Last Admin: 07/26/20 11:53 Dose: 650 mg Documented by: Docusate Sodium (Docusate Sodium 100 Mg Capsule) 200 mg PO BID PRN PRN PRN Reason: Constipation Last Admin: 07/26/20 15:46 Dose: 200 mg Documented by: Doxazosin Mesylate (Doxazosin 4 Mg Tablet) 4 mg PO QHS [facility] Last Admin: 07/25/20 22:39 Dose: 4 mg Documented by: Enoxaparin Sodium (Enoxaparin 40 Mg/0.4 Ml Syringe) 40 mg SC DAILY [facility] Last Admin: 07/26/20 09:36 Dose: 40 mg Documented by: Ampicillin Sodium/Sulbactam (Sodium 3 gm/ Sodium Chloride) 112 mls @ 150 mls/hr IV Q6 [facility] Last Infusion: 07/26/20 14:06 Dose: Infused Documented by: Magnesium Chloride (Magnesium Chloride 64 Mg Delay Rel.Tablet) 128 mg PO DAILY [facility] Last Admin: 07/26/20 09:35 Dose: 128 mg Documented by: Melatonin (Melatonin 10 Mg Tablet) 5 mg PO QHS PRN PRN PRN Reason: SLEEP Last Admin: 07/25/20 20:28 Dose: 5 mg Documented by: Morphine Sulfate (Morphine 2 Mg/Ml Syringe) 2 mg IV Q3H PRN PRN PRN Reason: Pain Score 6-10 Last Admin: 07/26/20 15:52 Dose: 2 mg Documented by: Nitroglycerin (Nitroglycerin (Inpatient Use) 0.4 Mg Tab.Subl) 0.4 mg SUBLINGUAL Q5M PRN PRN Reason: CARDIAC/CHEST PAIN Nutritional Formula (Nutritional Supplement (Enrique) Packet) 1 packet PO BIDCM LUDWIN Last Admin: 07/26/20 09:35 Dose: 1 packet Documented by: Ondansetron HCl (Ondansetron 4 Mg/2 Ml Vial) 4 mg IV Q8H PRN PRN PRN Reason: NAUSEA/VOMITING Oxycodone HCl (Oxycodone 5 Mg Tablet) 5 mg PO Q4H PRN PRN PRN Reason: Pain Score 4-5 Last Admin: 07/26/20 13:48 Dose: 5 mg Documented by: Rizatriptan Benzoate (Rizatriptan Benzoate 10 Mg Tablet) 50 mg PO .X1 PRN LUDWIN Sodium Chloride (0.9% Saline Lock 10 Ml Syringe) 10 - 40 ml IV UD PRN PRN Reason: SALINE FLUSH Last Admin: 07/24/20 23:37 Dose: 10 ml Documented by: Medical Necessity - Tobacco Use Smoking Status: Never smoker Assessment/Plan All Active Problems Tenosynovitis of right hand (Acute) Cat bite of right hand including fingers with infection (Acute) Cat bite (Acute) Infected cat bite of multiple sites of hand and fingers (Acute) 1. Cat bite infection dorsum right hand and right long finger. 2. Tenosynovitis right hand. Right hand incision is stable. Wound care is daily silver dressing changes packed into the open wounds. Covered with gauze wrap and SURAJ wrap for compression. Encouraged to keep hand elevated to help reduce swelling and pain. His pain is controlled with both oral and IV pain medications. Preliminary cultures from 07/24/20 show Coag negative staph. He is currently on Unasyn. Preliminary operative cultures pending. Prealbumin 17.9. Encouraged protein supplementation for wound healing. Patient is not sure if he and his will be able to initially do the dressing changes at home. They will be able to come into the office 3 times per week for dressing changes until they feel comfortable doing the wound care. Possible discharge tomorrow. Follow up in Dr. Gabriel's office Thursday for follow up.
[2020-07-26 15:00] VITALS: BP 127/76; PULSE 79; RESP 16; TEMP 36.9; O2SAT 96
--- NOTE | 2020-07-26 15:31 | PCM.PROGNOTE ---
Patient Problems: Active and Suspected Problems Infected cat bite of multiple sites of hand and fingers (Acute) Subjective: Patient was seen and examined today, talked briefly with plastic surgery about his care. Patient's white count is up a little bit today, but the patient is afebrile. Patient's right hand and wrist is wrapped with surgical dressing at this time, this was not removed for examination of the wound Objective: General: Alert, Oriented x3, Cooperative, No apparent distress, Well developed, Well nourished HEENT: Atraumatic, PERRLA, EOMI, Normocephalic Oral: Moist Mucosa Neck: Supple, No JVD, Trachea Midline, Thyroid Normal Size and Texture Lungs: Clear to auscultation, Normal air movement, No rhonchi, No wheeze, No rales Cardiovascular: Regular rate, Regular Rhythm, Normal S1, Normal S2, No murmurs, PMI Normal, No rub noted, No Gallop Abdomen: Bowel Sounds Present, Soft, Non Tender, Non-Distended, No hernias noted Extremities: No clubbing, No cyanosis, Capillary Refill Less than 3 Seconds, patient's right hand and wrist is wrapped with surgical dressing and a splint is in place Skin: - -Patient is right-hand and wrist area is wrapped with surgical dressing and a splint is in place Musculoskeletal: Tenderness - There is tenderness to palpation of the dorsum of the right hand Neurological: Cranial nerves II-XII grossly intact, Neuro grossly intact, Sensory exam intact to light touch and pain, Coordination normal Psych/Mental Status: Normal Affect, Appropriate, Alert and oriented to time, place, person, mood and affect - Physical Exam Vitals/I&O's: Vital Signs Temp Pulse Resp BP Pulse Ox 97.5 F L 75 18 122/54 H 95 07/26/20 11:00 07/26/20 11:00 07/26/20 11:00 07/26/20 11:07/26/20 11:00 Oxygen Flow Rate (L/min) 2 Oxygen Delivery Method Room Air Weight: 101.2 kg Body Mass Index (BMI) 33.9 Intake and Output for Last 24 Hours 07/24/20 07/25/20 07/26/20 23:59 23:59 23:59 Intake Total 112 / 232 5208.83 / 5208.83 1198.5 / 1198.5 Output Total 0 / 0 Balance 112 / 232 5208.83 / 5208.83 1198.5 / 1198.5 Microbiology Past 72 Hours 07/25/20 Unknown Tissue - Hand Gram Stain - Final 07/24/20 23:45 Wound - Hand Gram Stain - Final 07/24/20 23:45 Wound - Hand Wound Culture - Preliminary Coag Negative Staph 07/25/20 12:04 Mucosa - Nose SARS-CoV-2 Antigen (Rapid) - Final Laboratory Results 07/26/20 05:34: WBC 13.7 H, RBC 4.60, Hgb 13.5, Hct 39.1 L, MCV 85.0, MCH 29.3, MCHC 34.5, RDW Std Deviation 36.4, RDW Coeff of Gerhard 11.9, Plt Count 239, MPV 9.9, ESR 13 07/26/20 05:34: Sodium 138, Potassium 4.5, Chloride 108 H, Carbon Dioxide 24.0, Anion Gap 6, BUN 15, Creatinine 0.85, Estim Creat Clear Calc 124.06, Est GFR (MDRD) Af Amer 136, Est GFR (MDRD) Non-Af 112, BUN/Creatinine Ratio 17.6, Glucose 115 H, Calcium 8.8, Total Bilirubin 0.40, AST 18, ALT 42, Alkaline Phosphatase 98, C-React Prot Ext Range 17.40 H, Total Protein 6.4, Albumin 3.3, Globulin 3.1, Albumin/Globulin Ratio 1.1, Prealbumin 17.9 L Current Medications Acetaminophen (Acetaminophen 325 Mg Tablet) 650 mg PO Q6H PRN PRN PRN Reason: Pain Score 1-10/Temp > 100.7 F Last Admin: 07/26/20 11:53 Dose: 650 mg Documented by: Docusate Sodium (Docusate Sodium 100 Mg Capsule) 200 mg PO BID PRN PRN PRN Reason: Constipation Doxazosin Mesylate (Doxazosin 4 Mg Tablet) 4 mg PO QHS REPLACED BY [facility] Last Admin: 07/25/20 22:39 Dose: 4 mg Documented by: Enoxaparin Sodium (Enoxaparin 40 Mg/0.4 Ml Syringe) 40 mg SC DAILY REPLACED BY [facility] Last Admin: 07/26/20 09:36 Dose: 40 mg Documented by: Ampicillin Sodium/Sulbactam (Sodium 3 gm/ Sodium Chloride) 112 mls @ 150 mls/hr IV Q6 REPLACED BY [facility] Last Infusion: 07/26/20 14:06 Dose: Infused Documented by: Magnesium Chloride (Magnesium Chloride 64 Mg Delay Rel.Tablet) 128 mg PO DAILY REPLACED BY [facility] Last Admin: 07/26/20 09:35 Dose: 128 mg Documented by: Melatonin (Melatonin 10 Mg Tablet) 5 mg PO QHS PRN PRN PRN Reason: SLEEP Last Admin: 07/25/20 20:28 Dose: 5 mg Documented by: Morphine Sulfate (Morphine 2 Mg/Ml Syringe) 2 mg IV Q3H PRN PRN PRN Reason: Pain Score 6-10 Last Admin: 07/26/20 10:53 Dose: 2 mg Documented by: Nitroglycerin (Nitroglycerin (Inpatient Use) 0.4 Mg Tab.Subl) 0.4 mg SUBLINGUAL Q5M PRN PRN Reason: CARDIAC/CHEST PAIN Nutritional Formula (Nutritional Supplement (Enrique) Packet) 1 packet PO BIDCM REPLACED BY [facility] Last Admin: 07/26/20 09:35 Dose: 1 packet Documented by: Ondansetron HCl (Ondansetron 4 Mg/2 Ml Vial) 4 mg IV Q8H PRN PRN PRN Reason: NAUSEA/VOMITING Oxycodone HCl (Oxycodone 5 Mg Tablet) 5 mg PO Q4H PRN PRN PRN Reason: Pain Score 4-5 Last Admin: 07/26/20 13:48 Dose: 5 mg Documented by: Rizatriptan Benzoate (Rizatriptan Benzoate 10 Mg Tablet) 50 mg PO .X1 PRN REPLACED BY [facility] Sodium Chloride (0.9% Saline Lock 10 Ml Syringe) 10 - 40 ml IV UD PRN PRN Reason: SALINE FLUSH Last Admin: 07/24/20 23:37 Dose: 10 ml Documented by: Medical Necessity - Tobacco Use Smoking Status: Never smoker Assessment/Plan All Active Problems Tenosynovitis of right hand (Acute) Cat bite of right hand including fingers with infection (Acute) Cat bite (Acute) Infected cat bite of multiple sites of hand and fingers (Acute) #1 deep wound infection of the right hand, coag negative staph is preliminary on the wound culture, patient's tissue culture has not resulted yet-continue present antibiotic coverage, patient's came in today for instructions on how to change his dressing and pack his wound, she will return tomorrow for additional instruction. Inpatient E&M: 82471 Subs Hosp L2
[2020-07-26] MEDS: Docusate Sodium 100 MG Capsule 200 MG PO (15:46)
[2020-07-26 15:47] VITALS: BP 124/62; PULSE 82; RESP 14; TEMP 36.9; O2SAT 99
--- NOTE | 2020-07-26 18:46 | NURSING ---
reviewed and agree with documentation by LISA Ceballos
[2020-07-26 20:40] VITALS: BP 116/67; PULSE 75; RESP 16; TEMP 36.4; O2SAT 98
[2020-07-26] MEDS: Doxazosin 4 MG Tablet PO (21:16)
[2020-07-26] MEDS: MELATONIN 10 MG TABLET 5 MG PO (21:16)
[2020-07-27] MEDS: oxyCODONE 5 MG Tablet PO ×3 (01:47→12:48)
[2020-07-27 02:00] VITALS: BP 100/49; PULSE 75; RESP 16; TEMP 36.3; O2SAT 96
[2020-07-27 06:37] LABS: Absolute Lymphocyte Count 2.57 X10^3/uL (0.83-4.51); Absolute Neutrophil Count 3.6 X10^3/uL (2.0-7.7); Basophil# 0.02 X10^3/uL; Basophil% 0.3 % (0-1); Eosinophil# 0.04 X10^3/uL; Eosinophils% 0.6 % (0-5); Hematocrit 36.5 % (40-54); Hemoglobin 12.5 g/dL (13.0-16.5); Lymphocyte # 2.57 X10^3/ul (4.0); Lymphocyte % 37.6 % (19-41); Mean Corp Hgb Conc 34.2 g/dL (32-36); Mean Corpuscular Hgb 29.2 pg (27.0-32.0); Mean Corpuscular Volume 85.3 fL (80-94); Mean Platelet Vol. 9.6 fl (6.2-12.0); Monocyte# 0.61 X10^3/uL; Monocyte% 8.9 % (0-10); NRBC Flagged by Analyzer 0 % (0-5); Neutrophil # 3.57 X10^3/uL (2.7-7.7); Neutrophil % 52.2 % (47-70); Platelet Count 204 K/mm3 (150-450); RBC Distribution Width CV 12.3 % (11.6-14.6); Red Blood Count 4.28 M/mm3 (4.6-6.2); White Blood Count 6.8 K/mm3 (4.4-11.0)
[2020-07-27 07:36] VITALS: BP 115/69; PULSE 75; RESP 16; TEMP 35.7; O2SAT 97
[2020-07-27 07:39] VITALS: PULSE 75; RESP 16; O2SAT 97
--- NOTE | 2020-07-27 08:57 | PCM.DC ---
- Discharge Diagnoses Current Active Problems: Current Active and Chronic Problems Infected cat bite of multiple sites of hand and fingers (Acute) You will use the following diet at home:: No restrictions Your food should be the consistency of: Regular Your liquids should be the consistency of: Regular/Thin Discharge Activity: Return to Normal Activity Weight Bearing Status: Full weight bearing Additional Instructions: Dressing changes daily as directed with Aquacel-AG Allergies/Adverse Reactions: Allergies No Known Allergies Allergy (Verified 07/07/16 19:21) Medications to take at Discharge Magnesium Oxide 420 mg PO DAILY 07/24/20 Melatonin 5 mg PO QHS PRN PRN 07/24/20 Prazosin HCl 5 mg PO QHS 07/24/20 Sumatriptan Succinate [Imitrex] 50 mg PO .X1 PRN 07/24/20 Amoxicillin/Potassium Clav [Augmentin 875-125 Tablet] 1 ea PO BIDCM #14 tab 07/27/20 Oxycodone [Oxyir] 5 mg PO Q4H PRN PRN 7 Days #14 tablet 07/27/20 The following prescriptions were given: Amoxicillin/Potassium Clav [Augmentin 875-125 Tablet] 1 ea PO BIDCM #14 tab Transmission Status: Pending to [facility] Oxycodone [Oxyir] 5 mg PO Q4H PRN PRN 7 Days #14 tablet PRN Reason: Pain Score 4-5 Transmission Status: Sent to [facility] Primary Care Physician: Olaf Medel MD [Primary Care Provider] - Test Results: Test results from this visit will be discussed in further detail at your follow-up appointment, if applicable. Please Follow Up With: Art Gabriel MD When: next week
[2020-07-27] MEDS: Enoxaparin 40 MG/0.4 ML Syringe SC (09:05)
[2020-07-27] MEDS: Acetaminophen 325 MG Tablet 650 MG PO (09:08)
[2020-07-27] MEDS: Magnesium Chloride 64 MG Delay Rel.Tablet 128 MG PO (09:09)
[2020-07-27 10:48] VITALS: BP 134/67; PULSE 84; RESP 16; TEMP 36.3; O2SAT 98
[2020-07-27] MEDS: Morphine 2 MG/ML Syringe IV (11:42)
[2020-07-27] MEDS: 0.9% Saline Lock 10 ML Syringe IV (11:43)
--- NOTE | 2020-07-27 12:06 | PHA.DC.MC ---
Pharmacy Service has performed discharge medication reconciliation and counseling for this patient. The patient was counseled on the following discharge medications and changes in medications for homegoing were reviewed. 1. AUGMENTIN 2. OXYCODONE The Reason for Use, instructions for use, and potential side effects were reviewed for all new medications. The patient's questions regarding all of their medications were answered. The patient was able to verbally demonstrate an understanding of their discharge medications. Home Medications Magnesium Oxide 420 mg PO DAILY 07/24/20 Melatonin 5 mg PO QHS PRN PRN 07/24/20 Prazosin HCl 5 mg PO QHS 07/24/20 Sumatriptan Succinate [Imitrex] 50 mg PO .X1 PRN 07/24/20 Amoxicillin/Potassium Clav [Augmentin 875-125 Tablet] 1 ea PO BIDCM #14 tab 07/27/20 Oxycodone [Oxyir] 5 mg PO Q4H PRN PRN 7 Days #14 tab 07/27/20 The patient's discharge medication list was reviewed for discrepancies and discrepancies were resolved.
--- NOTE | 2020-07-27 12:08 | CASEMGMT ---
Addendum entered by Bre Menard 07/28/20 06:44: Discharge instructions and summary faxed to [facility] at this time. Original Note: LITZY VELASQUEZ NOTE: Received message that Kirstin @ [facility] is requesting plan for discharge/POC for pt. Call placed to Kirstin at this time @ [phone], ext: [phone]. No answer. VM left to inform her pt is discharging home today. Will fax d/c summary and instructions to [facility] when this info is available. Cornell GARCIA RN CM
--- NOTE | 2020-07-27 14:00 | NURSING ---
reviewed and agree with documentation by LISA Ceballos
--- NOTE | 2020-07-27 19:37 | PCM.DC.SUM ---
Discharge Date and Diagnosis - Problem List Patient Problems: Active and Suspected Problems Infected cat bite of multiple sites of hand and fingers (Acute) Date of Admission: 07/24/20 Date of Discharge: 07/27/20 - Primary Discharge Diagnosis Acute Problems: Active Problems #1 infected cat bite of multiple sites of hand and fingers (Acute)-organism Gram variable terrence #2 PTSD Hospital Course and Treatment Operations: - - I&D of right hand wound Summary of Care Provided: The patient is a 29 year old M who was seen in the emergency room at [facility] with a chief complaint of swelling and redness of his right hand which occurred after he got bitten by a cat. Patient was seen at an outside facility after the cat bite and was treated with amoxicillin but despite this he continued to have swelling of his right hand with redness and inability to straighten his fingers out and make a fist. Labs revealed a normal white blood cell count, lactic acid was elevated at 2.1, patient was admitted to [place] [address] and seen in consultation by plastic surgery, he was maintained on IV antibiotics, and underwent an incision and drainage of his right hand. Initial cultures obtained when the patient was admitted were probably contaminated with staph epidermidis, cultures obtained during surgery grew out a gram variable terrence-exact identification of the organism was not available at the time of my dictation. Patient was seen by wound care while he was hospitalized. On 07/27/2020, patient was seen and examined: On examination he appeared in good health and spirits. Vital signs as documented. Skin warm and dry and without overt rashes. Neck without JVD, neck was supple, trachea midline, thyroid was normal. Lungs clear bilaterally, normal air movement was noted. Heart exam notable for regular rhythm, normal sounds and absence of murmurs, rubs or gallops. Abdomen unremarkable and without evidence of organomegaly, masses, or abdominal aortic enlargement. Bowel sounds are present, abdomen is not distended. Extremities-right hand was wrapped with surgical dressing and a splint was in place, no cyanosis was noted, no clubbing was noted. Neuro: Cranial nerves II through XII are grossly intact, no focal motor deficits were noted, sensation to light touch and pinprick intact, motor exam 5/5 throughout. Psych: Patient is alert and oriented x3, he does not appear anxious or depressed, he does not appear agitated. Patient was discharged in stable condition on 07/27/2020. Patient Problems: Active and Suspected Problems Infected cat bite of multiple sites of hand and fingers (Acute) - Physical Exam Vitals/I&O's: Vital Signs Temp Pulse Resp BP Pulse Ox 97.4 F L 84 16 134/67 H 98 07/27/20 10:48 07/27/20 10:48 07/27/20 10:48 07/27/20 10:48 07/27/20 10:48 Oxygen Flow Rate (L/min) 2 Oxygen Delivery Method Room Air Weight: 101.2 kg Body Mass Index (BMI) 33.9 Intake and Output for Last 24 Hours 07/25/20 07/26/20 07/27/20 23:59 23:59 23:59 Intake Total 5208.83 / 5208.83 1810.5 / 1810.5 574 / 574 Output Total 0 / 0 Balance 5208.83 / 5208.83 1810.5 / 1810.5 574 / 574 Microbiology Past 72 Hours 07/25/20 Unknown Tissue - Hand Gram Stain - Final 07/25/20 Unknown Tissue - Hand Wound Culture - Preliminary Gram variable terrence 07/25/20 Unknown Tissue - Hand Anaerobic Culture - Preliminary Checking for anaerobes, further studies to follow. 07/24/20 23:45 Wound - Hand Gram Stain - Final 07/24/20 23:45 Wound - Hand Wound Culture - Final Coag Negative Staph Coag Negative Staph#2 07/25/20 12:04 Mucosa - Nose SARS-CoV-2 Antigen (Rapid) - Final Laboratory Results 07/27/20 06:15: WBC 6.8, RBC 4.28 L, Hgb 12.5 L, Hct 36.5 L, MCV 85.3, MCH 29.2, MCHC 34.2, RDW Std Deviation 38.0, RDW Coeff of Gerhard 12.3, Plt Count 204, MPV 9.6, Immature Gran % (Auto) 0.400, Neut % (Auto) 52.2, Lymph % (Auto) 37.6, [place] % (Auto) 8.9, Eos % (Auto) 0.6, Baso % (Auto) 0.3, Absolute Neuts (auto) 3.6, Absolute Lymphs (auto) 2.57, Nucleated RBC % 0 Discharge Activity: Return to Normal Activity Weight Bearing Status: Full weight bearing Home Medications: Medications to take at Discharge Magnesium Oxide 420 mg PO DAILY 07/24/20 Melatonin 5 mg PO QHS PRN PRN 07/24/20 Prazosin HCl 5 mg PO QHS 07/24/20 Sumatriptan Succinate [Imitrex] 50 mg PO .X1 PRN 07/24/20 Amoxicillin/Potassium Clav [Augmentin 875-125 Tablet] 1 ea PO BIDCM #14 tab 07/27/20 Oxycodone [Oxyir] 5 mg PO Q4H PRN PRN 7 Days #14 tab 07/27/20 Following Prescriptions Were Given to Patient: Amoxicillin/Potassium Clav [Augmentin 875-125 Tablet] 1 ea PO BIDCM #14 tab Transmission Status: Received by [facility] Oxycodone [Oxyir] 5 mg PO Q4H PRN PRN 7 Days #14 tab PRN Reason: Pain Score 4-5 Transmission Status: Received by [facility] Primary Care Physician: Olaf Medel MD [Primary Care Provider] - Please Follow Up With: Art Gabriel MD When: next week Disposition: Home Minutes spent on discharge:: 31 Patient Condition:: Stable Medical Necessity - Tobacco Use Smoking Status: Never smoker Meaningful Use Info Meaningful Use Diagnoses (Choose all that apply): None applicable Inpatient E&M: 01640 Disch Hosp
== END 2020-07-27 13:27 | disposition home or self-care (01) | DRG 580 ==
LOC: ED 21:26 → MS3 21:59
PROVIDERS: Surgery; Admitting Provider Student in an Organized Health Care Education/Training Program; Emergency Provider Emergency Medicine; PCP Family Medicine; Visit Provider Internal Medicine
PROC: 0J9J0ZZ Drainage of Right Hand Subcutaneous Tissue and Fascia, Open Approach (ICD-10-PCS; principal; 2020-07-25 12:50)
DX: L02.511 Cutaneous abscess of right hand (principal); L03.113 Cellulitis of right upper limb; E87.2 Acidosis; B96.89 Other specified bacterial agents as the cause of diseases classified elsewhere; M65.9 Synovitis and tenosynovitis, unspecified; F43.10 Post-traumatic stress disorder, unspecified; W55.01XA Bitten by cat, initial encounter; Y93.89 Activity, other specified; Y92.89 Other specified places as the place of occurrence of the external cause; Y99.8 Other external cause status
CPT/HCPCS: 36415; 73130; 80048; 80053; 83605; 84134; 85025; 85027; 85652; 86140; 87070; 87075; 87077; 87102; 87186; 87205; 87206; 87426; 87640; 88304; 88305; 88312; 97166; 99284; J7030; J7050; J7120; A4216; J0295; J2405

== ENCOUNTER 2020-09-05 10:30 | Outpatient (RCR) | payer OTHER, SELFPAY ==
[2020-08-02 10:48] VITALS: BMI 33.5
--- NOTE | 2020-08-17 09:46 | HP.OTEVAL ---
Patient's Visit Information AYAKA CASTREJON is a 29 year old M, referred to Occupational Therapy by NAVIN Ramirez, with a diagnosis of cat bite-. Date of Evaluation: 08/15/20 Occupational Therapist: Aissatou Murguia, FERMIN/Billy, CHT - Subjective This 29 year old male was seen for OT eval with dx of right MF cat bite. pt states on 07/22/20. pts finger did get infected and underwent sx on 07/25/20 for open irrigation and debed. Pt arrives today for custom orthosis per to allow for MCP, DIP motion. Pt states he is doing well but still reports limits on performing ADLs and IADls. - Pain right hand 3 Pain Intensity Range: 0, 6 - ROM MP: right MF 0/75 left 0/90 PIP: right MF NT pt demo PIP ext at 0 no extensor lag noted left 0/100 DIP: right MF 0/20 left 0/80 - Strength Shel[employer] Advocate: right NT left 126 Lateral Pinch: right NT left 26# Tripod Pinch: right NT left 24# Strength Comments: will test right strength at later date - Sensation Sensation Comments: pt reports right MF numbness around incision and tingling around PIP - Quick DASH-Disab of Arm,Shoulder& Hand Quick DASH Score: 76.6650 - Goals Goal:: pt will demo a increase in right head grease maker strength to 95# or greater to increase pts ind. with ADLs and IADLs by d/c Goal:: pt will demo full right MF ROM to allow for formation of composite fist for ADLs and IADLs by d/c Goal:: pt will report pain no greater than 1/10 with use of right hand with ADLs and IADL by d/c - Rehabilitation General Assessment: 1. Surgical preparation dorsum right hand with incision and drainage and excisional debridement cat bite infection. 2. Surgical preparation dorsal ulnar aspect proximal phalanx right long finger with incision and drainage and excisional debridement cat bite infection. 3. PIP joint extension splint for partial extensor tendon injury right long finger between radial lateral band and central tendon near PIP joint (zone 4). Pt arrives today 3 weeks s/p and in need of custom orthosis to allow for MP and DIP motion but no PIP motion. Pt demo limitations with use of right hand with ADLs and IADLs and would benefit from skilled OT services 1-2x week for 6 weeks. Today the thearpist blaise. custom orthosis allowing MP and DIP motion but limiting PIP motion. therapist ed. pt on use and care. pt demo understanding- therapist also ed. pt on need of cont. with his wound soaks, and healing process of tendon. Pt demo understanding. As dr. underwood therapy will initiate ROM and strength to return pt to PLOF. pt agree to POC. Rehabilitation Potential: Good - Anticipated Interventions A/AAROM/PROM, Strengthening, Edema Control, Scar Care, Wound Care, Modalities, Orthoses - Visit Plan Frequency: 1-2x /Week Duration: 6 Weeks TEXT: Thank you for the opportunity to evaluate your patient. For Medicare and Medicare HMO plans, please review the plan of care and approve it. It will need to be FAXED BACK to us at [phone] for Medicare purposes. Please let me know if there are questions or concerns regarding this plan of care. Physician Signature: Date:
--- NOTE | 2020-11-21 12:30 | HP.OT.NRP ---
AYAKA CASTREJON was seen in my office for initial evaluation on 08/15/20. The following Plan of Care was established for this patient: Initial Frequency: 1-2x /Week Initial Duration: 6 Weeks Plan: cont POC Anticipated Interventions: A/AAROM/PROM, Strengthening, Edema Control, Scar Care, Wound Care, Modalities, Orthoses This patient was last seen in our office 09/05/20. Pertinent comments regarding their Occupational therapy will appear below: pt was seen for 4 OT visits- pt demo increase in ROM and use of her hand- pt at this time has not returned to the clinic and due to time lapse in services pt d/c . At this point I will be discontinuing this patient from occupational therapy. I would be happy to see this patient again in the future if found appropriate by the physician. Thank you! Aissatou Murguia, OTR/L, CHT
== END 2020-09-05 19:00 | disposition home or self-care (01) ==
LOC: OT 10:30
PROVIDERS: PCP Family Medicine; Referring Provider Nurse Practitioner Family; Visit Provider Nurse Practitioner Family
DX: S66.39 Other injury of extensor muscle, fascia and tendon of other and unspecified finger at wrist and hand level (principal); M65.9 Synovitis and tenosynovitis, unspecified; S61.459D Open bite of unspecified hand, subsequent encounter; S61.259D Open bite of unspecified finger without damage to nail, subsequent encounter; L08.9 Local infection of the skin and subcutaneous tissue, unspecified; W55.01XD Bitten by cat, subsequent encounter; S61.451D Open bite of right hand, subsequent encounter
CPT/HCPCS: 97140; 97166; 97760